=== PATIENT | female | born 1990 | race Caucasian/White ===

== ENCOUNTER → 2017-05-17 | Outpatient (CLI) | payer MEDICAID | LOC: HPND 13:57 | DX: O26.843 Uterine size-date discrepancy, third trimester (principal) | CPT/HCPCS: 76816 ==

== ENCOUNTER → 2017-06-17 | Outpatient (CLI) | payer MEDICAID | LOC: HPND 14:11 | DX: O26.843 Uterine size-date discrepancy, third trimester (principal) | CPT/HCPCS: 76816 ==